=== PATIENT | female | born 1990 | race Caucasian/White ===

== ENCOUNTER 2018-05-04 09:40 | Outpatient (CLI) | payer OTHER, SELFPAY ==
[2018-05-04 10:11] LABS: HCT 29.6 % (36.0-46.0); HGB 10.3 g/dL (12.0-15.5); Mean Corp. HGB Concentration 34.8 g/dL (32.0-36.0); Mean Corpuscular Hemoglobin 32.9 pg (27.0-33.0); Mean Corpuscular Volume 94.6 fL (80-95); Mean Platelet Volume 9.5 fL (8.0-11.0); Platelet Count 213 x1000/uL (130-400); RBC 3.13 m/cumm (4.00-5.20); RBC Distribution Width 12.4 % (11.7-14.6); White Blood Cell Count 10.14 k/cumm (4.4-10.8)
[2018-05-04 10:25] LABS: Glucose,1 Hr (Glucola) 112 mg/dL (80-140)
== END 2018-05-04 10:00 ==
PROVIDERS: Advanced Practice Midwife; PCP Nurse Practitioner; Visit Provider Advanced Practice Midwife
DX: Z34.92 Encounter for supervision of normal pregnancy, unspecified, second trimester (principal)
CPT/HCPCS: 36415; 82950; 85027

== ENCOUNTER 2018-06-30 15:42 | Outpatient (REF) | payer OTHER, SELFPAY | END 2018-06-30 16:02 | LOC: LBN 15:42 | PROVIDERS: PCP Nurse Practitioner; Visit Provider Nurse Practitioner | DX: Z34.93 Encounter for supervision of normal pregnancy, unspecified, third trimester (principal); Z36.85 Encounter for antenatal screening for Streptococcus B | CPT/HCPCS: 87081 ==

== ENCOUNTER 2018-08-02 16:31 | Inpatient (IN) | payer OTHER, SELFPAY ==
[2018-08-02] MEDS: Normal Saline Flush 10 ML SYR IVP ×2 (18:56→19:16)
[2018-08-02] MEDS: Lactated Ringers 1,000 ML 125 ML IV (18:57)
[2018-08-02 20:16] LABS: HCT 33.8 % (36.0-46.0); HGB 11.7 g/dL (12.0-15.5); Mean Corp. HGB Concentration 34.6 g/dL (32.0-36.0); Mean Corpuscular Hemoglobin 30.5 pg (27.0-33.0); Mean Corpuscular Volume 88.3 fL (80-95); Mean Platelet Volume 9.8 fL (8.0-11.0); Platelet Count 210 x1000/uL (130-400); RBC 3.83 m/cumm (4.00-5.20); RBC Distribution Width 14.4 % (11.7-14.6); White Blood Cell Count 18.36 k/cumm (4.4-10.8)
[2018-08-02] MEDS: Normal Saline 50 ML 100 ML (23:50)
[2018-08-02] MEDS: Normal Saline Flush 10 ML SYR (23:50)
[2018-08-03] MEDS: Normal Saline 100 ML 150 ML (00:01)
[2018-08-03] MEDS: Lactated Ringers 200 ML 400 ML IV (01:55)
[2018-08-03] MEDS: Lactated Ringers 1,000 ML 125 ML IV (11:35)
[2018-08-03] MEDS: Oxytocin 10 UNITS/ML VIAL 20 UNITS IV (13:15)
[2018-08-03] MEDS: Ibuprofen 600 MG TAB PO ×2 (14:38→20:27)
[2018-08-03] MEDS: Acetaminophen 325 MG TAB 650 MG PO ×2 (14:38→19:05)
[2018-08-03] MEDS: Hamamelis Leaf/Glycerin 100 EACH BOX PR (14:38)
[2018-08-03] MEDS: Lidocaine 2% Pres-Free 5 ML VIAL (16:08)
[2018-08-03] MEDS: Docusate Sodium 100 MG CAP PO (20:27)
[2018-08-04] MEDS: Ibuprofen 600 MG TAB PO (06:22)
[2018-08-04] MEDS: Acetaminophen 325 MG TAB 650 MG PO (06:22)
[2018-08-04 16:54] LABS: HCT 29.9 % (36.0-46.0); HGB 9.8 g/dL (12.0-15.5); Mean Corp. HGB Concentration 32.8 g/dL (32.0-36.0); Mean Corpuscular Hemoglobin 30.2 pg (27.0-33.0); Mean Corpuscular Volume 92.3 fL (80-95); Mean Platelet Volume 10.1 fL (8.0-11.0); Platelet Count 248 x1000/uL (130-400); RBC 3.24 m/cumm (4.00-5.20); RBC Distribution Width 14.9 % (11.7-14.6); White Blood Cell Count 16.29 k/cumm (4.4-10.8)
== END 2018-08-04 17:15 | disposition home or self-care (01) | DRG 806 ==
PROVIDERS: Admitting Provider Advanced Practice Midwife; PCP Nurse Practitioner; Visit Provider Advanced Practice Midwife
DX: O48.0 Post-term pregnancy (principal); O87.2 Hemorrhoids in the puerperium; Z37.0 Single live birth; Z3A.40 40 weeks gestation of pregnancy; O77.0 Labor and delivery complicated by meconium in amniotic fluid; O70.0 First degree perineal laceration during delivery; O69.82X0 Labor and delivery complicated by other cord entanglement, without compression, not applicable or unspecified; Z30.430 Encounter for insertion of intrauterine contraceptive device; O99.824 Streptococcus B carrier state complicating childbirth
CPT/HCPCS: 36410; 36415; 85027; 86850; 86900; 86901; J2540; J7302

== ENCOUNTER 2018-08-05 15:08 | Outpatient (CLI) | payer OTHER, SELFPAY | END 2018-08-05 15:28 | PROVIDERS: PCP Nurse Practitioner; Visit Provider Advanced Practice Midwife | DX: Z37.0 Single live birth (principal) | CPT/HCPCS: E0602 ==

== ENCOUNTER 2019-04-22 14:37 | Outpatient (CLI) | payer OTHER, SELFPAY ==
[2019-04-22 15:09] LABS: HCT 40.3 % (36.0-46.0); HGB 13.7 g/dL (12.0-15.5); Mean Corpuscular Hemoglobin 31.4 pg (27.0-33.0); Mean Corpuscular Volume 92.4 fL (80-95); Platelet Count 322 x1000/uL (130-400); RBC 4.36 m/cumm (4.00-5.20); RBC Distribution Width 12.2 % (11.7-14.6); White Blood Cell Count 6.57 k/cumm (4.4-10.8)
[2019-04-22 15:41] LABS: Total Iron Binding Capacity 291 ug/dL (250-450)
[2019-04-22 16:09] LABS: ALT 23 U/L (14-59); AST 16 U/L (15-37); Albumin 3.9 g/dL (3.4-5.0); Alkaline Phosphatase 110 U/L (46-116); Anion Gap 6.1 mmol/L (3-11); BUN 16 mg/dL (7-18); Bilirubin, Total 0.4 mg/dL (0.2-1.0); CO2 28.9 mmol/L (21.0-32.0); CREATININE 0.72 mg/dL (0.55-1.02); Calcium 9.1 mg/dL (8.5-10.1); Chloride 104 mmol/L (98-107); Ferritin 44 ng/mL (8-388); Glucose 89 mg/dL (70-100); Potassium 4.1 mmol/L (3.5-5.1); Sodium 139 mmol/L (136-145); TSH (W/Ref FT4) 1.72 uIU/mL (0.36-3.74); Vitamin B12 448 pg/mL (193-986)
[2019-04-22 16:10] LABS: Folate > 20.0 ng/mL (8.6-20.0)
[2019-04-23 13:39] LABS: Lyme Ab w Rflx to Lyme Confirm Negative
== END 2019-04-22 14:57 ==
PROVIDERS: PCP Nurse Practitioner; Visit Provider Nurse Practitioner
DX: I10 Essential (primary) hypertension (principal); R53.83 Other fatigue
CPT/HCPCS: 36415; 80053; 85027; 82607; 82728; 82746; 83550; 84443; 86618

== ENCOUNTER 2019-08-04 09:30 | Outpatient (REF) | payer OTHER, SELFPAY | END 2019-08-04 09:50 | LOC: LBN 09:30 | PROVIDERS: PCP Nurse Practitioner; Visit Provider Nurse Practitioner Gerontology | DX: R50.9 Fever, unspecified (principal) | CPT/HCPCS: 87449 ==

== ENCOUNTER 2020-02-25 08:42 | Outpatient (CLI) | payer OTHER, SELFPAY ==
[2020-03-03 13:08] LABS: SARS-CoV-2 RNA Undetected (Undetected)
== END 2020-02-25 09:02 ==
PROVIDERS: PCP Nurse Practitioner; Visit Provider Nurse Practitioner
DX: Z11.59 Encounter for screening for other viral diseases (principal)
CPT/HCPCS: U0003

== ENCOUNTER 2020-07-17 07:59 | Outpatient (REF) | payer OTHER, SELFPAY ==
[2020-07-17 19:50] LABS: COVID-19 RT-PCR UVMMC Result Negative (Negative)
== END 2020-07-17 08:19 ==
LOC: LBO 07:59
PROVIDERS: Family Medicine; PCP Nurse Practitioner; Visit Provider Family Medicine
DX: Z11.59 Encounter for screening for other viral diseases (principal)
CPT/HCPCS: U0003

== ENCOUNTER 2020-11-30 17:09 | Outpatient (REF) | payer OTHER, SELFPAY ==
--- NOTE | 2020-11-30 15:40 | PAPFT_PTH ---
PATIENT: Cynthia Israel LOC: [place] U#:[id number] AGE/SX: 30/F ROOM: RE11/30/[address]: ALIE Haney : 1990 BED: DIS: 11/30/2020 SPEC #: [id number] RECD: 11/30/20 17:56 STATUS: CHRISTI REQ #: [id number] XAVIER: 11/30/20 15:[address]: Lauren Sarmiento DEPT: [facility] Cytology RECD BY: Justine Grimaldo ENTERED: 11/30/20 17:57 SP TYPE: PAPFT OTHR DR: Marielos Iniguez APRN Tissues: 1 - CX/ENDOCX FOR PAP SMEARS Procedures: PAP THIN PREP/UVM Screening HPV DNA PROBE Comments: [id number]
== END 2020-11-30 17:10 | disposition home or self-care (01) ==
LOC: LBN 17:09
PROVIDERS: PCP Nurse Practitioner; Visit Provider Nurse Practitioner Family
DX: Z12.4 Encounter for screening for malignant neoplasm of cervix (principal); Z11.51 Encounter for screening for human papillomavirus (HPV)
CPT/HCPCS: 88142; 87624

== ENCOUNTER 2021-05-13 09:17 | Emergency (ER) | payer OTHER, SELFPAY ==
[2021-05-13 09:21] VITALS: BP 107/70; PULSE 66; RESP 14; TEMP 36.7; O2SAT 98
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
[2021-05-13 10:26] LABS: Abs Immature Grans 0.02 10^3/uL (0.0-0.06); Absolute Basophil Count 0.03 10^3/uL (0.0-0.2); Absolute Eosinophil Count 0.09 10^3/uL (0.0-0.7); Absolute Lymphocyte Count 1.21 10^3/uL (1.2-3.4); Absolute Monocyte Count 0.39 10^3/uL (0.1-0.8); Absolute Neutrophil Count 3.54 10^3/uL (1.2-6.7); Basophils % 0.6; Eosinophils % 1.7; HCT 32.4 % (36.0-46.0); HGB 10.8 g/dL (11.2-15.7); Immature Grans % 0.4; Lymphocytes % 22.9; MCHC 33.3 % (32.0-36.0); MCV 93.1 fL (80-95); MPV 10.6 fL (8.0-11.0); Monocytes % 7.4; Nucleated RBC 0 %; Platelet Count 257 10^3/uL (130-400); RBC 3.48 10^6/uL (3.93-5.22); RDW 12.4 % (11.7-14.6); RDW-SD 41.7 fL; WBC 5.28 10^3/uL (4.4-10.8)
[2021-05-13] MEDS: Prochlorperazine 10 MG/2 ML VIAL IVP (10:36)
[2021-05-13] MEDS: Ketorolac 30 MG/ML VIAL IVP (10:37)
[2021-05-13] MEDS: diphenhydrAMINE 50 MG/ML VIAL 25 MG IVP (10:37)
[2021-05-13] MEDS: Normal Saline Flush 10 ML SYR IVP ×3 (10:38→12:01)
[2021-05-13 10:39] LABS: ALT 19 U/L (14-59); AST 17 U/L (15-37); Albumin 3.3 g/dL (3.4-5.0); Alkaline Phosphatase 74 U/L (46-116); Anion Gap 3.9 mmol/L (3-11); BUN 6 mg/dL (7-18); Bilirubin, Total 0.4 mg/dL (0.2-1.0); CO2 30.1 mmol/L (21.0-32.0); CREATININE 0.8 mg/dL (0.55-1.02); Calcium 8.5 mg/dL (8.5-10.1); Chloride 106 mmol/L (98-107); Glucose 92 mg/dL (74-106); Potassium 3.8 mmol/L (3.5-5.1); Sodium 140 mmol/L (136-145); Total Protein 6.6 g/dL (6.4-8.2)
[2021-05-13] MEDS: Omnipaque 350 MG/ML 100 ML BTL IJ (11:16)
--- NOTE | 2021-05-13 11:25 | DI.CT_ITS ---
Exam(s) CT HEAD W EXAM: CT HEAD W CLINICAL HISTORY: CTV, AQUINO intermittent 2 months, oral contraceptive. TECHNIQUE: Imaging Protocol: Both noninfused and contrast infused CT scans of the brain were perform ed. IV Contrast Dose =100 cc Axial computed tomography images with coronal and sagittal reformatted images were created and review ed COMPARISON: No exams were available for comparison FINDINGS: There are no skull fractures. Mild mucosal thickening noted in posterior aspect of both maxillary s inuses. Other paranasal sinuses are clear as are the mastoid air cells. There is no evidence of obvious intracranial hemorrhage, realizing that this study was performed only with IV contrast (as per request).There are no ring enhancing lesions in the brain. No abnormal men ingeal enhancement. There are no ring enhancing intra-axial lesions in the brain and there is no abnormal meningeal enhan cement, focal or diffuse. No evidence of vascular malformation nor obvious aneurysm. There is no evidence of venous sinus thrombosis. Asymmetry in the transverse sinuses is noted, as is often present. There is a peripherally hyperdense cyst in the pineal gland which measures 11 millimeters AP x 9 mill imeters craniocaudal by 10 millimeters wide, peripherally calcified ventricles are not enlarged. No prominent mass effect upon the tectumof the mesencephalon. Orbits reveal no obvious abnormality. IMPRESSION: No evidence of obvious venous dural sinus thrombosis, as per request. There is an 11 x 9 x 10 millimeter peripherally calcified lesion in the pineal. No associated hydroc ephalus. If clinically indicated follow-up MRI can be performed.. RADIATION DOSE DELIVERED: 859.3mGy.cm Total DLP DATA REPOSITORY: All CT scans at this facility are submitted to the National Radiology Data Registry (NRDR) Dose Index Registry (DIR) with the [employer] ([employer]). RADIATION OPTIMIZATION: All CT scans at this facility use at least one of these dose optimization te chniques: automated exposure control; mA and/or kV adjustment per patient size (includes targeted exa ms where dose is matched to clinical indication); or iterative reconstruction.
[2021-05-13] MEDS: Lactated Ringers 1,000 ML 1000 ML IV (12:00)
--- NOTE | 2021-05-13 12:38 | DI.VRAD_ITS ---
PROCEDURE INFORMATION: Exam: CT Head With Contrast Exam date and time: 05/13/2021 10:17 AM Age: 31 years old Clinical indication: Patient HX: CT venogram was performed. Headache x2 months, headache originating at occipital lobe, radiating around right ear. Worsening pain. TECHNIQUE: Imaging protocol: Computed tomography of the head with intravenous contrast. 3D rendering (Not supervised by radiologist): MIP and/or 3D reconstructed images were created by the technologist. Radiation optimization: All CT scans at this facility use at least one of these dose optimization techniques: automated exposure control; mA and/or kV adjustment per patient size (includes targeted exams where dose is matched to clinical indication); or iterative reconstruction. Contrast material: OMNIPAQUE 350; Contrast volume: 100 ml; Contrast route: INTRAVENOUS (IV); COMPARISON: No relevant prior studies available. FINDINGS: Brain: Non-enhancing peripherally calcified hypoattenuating 13 x 9 x 7 lesion in the pineal region. This likely represents a pineal cyst. There is no significant mass effect upon the tectum. No midline shift. There is no intracranial hemorrhage. There is normal guido-white matter differentiation without evidence of acute large vascular territorial infarct. There is no cerebral edema. There are no extra-axial fluid collections. The posterior fossa structures are unremarkable. Cerebral ventricles: The ventricles are normal in position. No hydrocephalus. Bones/joints: Unremarkable. No acute fracture. Paranasal sinuses: Visualized sinuses are unremarkable. No fluid levels. Mastoid air cells: Visualized mastoid air cells are well aerated. Vasculature: The dural sinuses, including the superior sagittal, straight, transverse, and sigmoid sinuses, are patent without evidence for thrombosis. Soft tissues: Unremarkable. IMPRESSION: Non-enhancing peripherally calcified hypoattenuating 13 x 9 x 7 lesion in the pineal region. This likely represents a pineal cyst. As this measures more than 1 cm, it is possible to be the cause of headache. Interval follow-up MRI of the brain could be performed to confirm stability. Dictated and Authenticated by: Zahira Hanson MD. Ordering:KAYLA Burdick MD
[2021-05-13 13:51] VITALS: BP 107/68; PULSE 68; RESP 14; TEMP 36.9; O2SAT 96
--- NOTE | 2021-05-13 18:07 | NUR.NOTE ---
referral to cm and neuro
== END 2021-05-13 14:01 | disposition home or self-care (01) ==
PROVIDERS: Emergency Provider Student in an Organized Health Care Education/Training Program; PCP Nurse Practitioner
DX: E34.8 Other specified endocrine disorders (principal); R51.9 Headache, unspecified; Z86.16 Personal history of COVID-19
CPT/HCPCS: 36415; 80053; 81025; 96361; 96374; 96375; 99285; 70460; 85025; 99284; J0780; J1200; J1885; J3490

== ENCOUNTER 2021-05-21 08:09 | Outpatient (CLI) | payer OTHER, SELFPAY ==
--- NOTE | 2021-05-21 08:00 | DI.MRI_ITS ---
Exam(s) MR BRAIN WO/W EXAM: MR BRAIN WO/W CLINICAL HISTORY: ?pineal cyst seen on CT E34.8 ENDOCRINE DISORDER. TECHNIQUE: Multiplanar multisequence MRI of the brain was performed. CONTRAST MATERIAL: IV Contrast: ML of Dotarem contrast administered. COMPARISON: CT CT HEAD W from 05/13/2021 FINDINGS: VENTRICLES AND EXTRA AXIAL SPACES: Normal in size and morphology for the patient's age. HEMORRHAGE: None. CEREBRAL PARENCHYMA: No focus of restricted diffusion to suggest acute infarct. No space-occupying le tremayne identified. MIDLINE SHIFT: None. BRAINSTEM/CEREBELLUM: Normal. Pituitary: Normal. ENHANCEMENT: No suspicious enhancement identified. VISUALIZED PARANASAL SINUSES/MASTOIDS: Clear. OTHER FINDINGS: 11 x 9 x 10 millimeter pineal cyst without visible mass effect. No calcifications ar e visible by MRI. No evidence of hemorrhage. IMPRESSION: Eleven millimeter pineal cyst without mass effect.. DATA REPOSITORY:
[2021-05-21] MEDS: Gadoterate meglumine 20 ML VIAL 10 ML IVP (14:32)
[2021-05-21] MEDS: Normal Saline Flush 10 ML SYR IVP (14:33)
== END 2021-05-21 08:29 ==
PROVIDERS: PCP Nurse Practitioner; Visit Provider Psychiatry & Neurology Neurology
DX: E34.8 Other specified endocrine disorders (principal); G93.0 Cerebral cysts
CPT/HCPCS: 70553

== ENCOUNTER 2022-10-08 02:07 | Outpatient (CLI) | payer OTHER, SELFPAY ==
[2022-10-08 07:49] LABS: HCT 34.9 % (36.0-46.0); HGB 11.4 g/dL (11.2-15.7); MCH 31.4 pg (27.0-33.0); MCHC 32.7 % (32.0-36.0); MCV 96 fL (80-95); MPV 10.2 fL (8.0-11.0); Platelet Count 272 10^3/uL (130-400); RBC 3.63 10^6/uL (3.93-5.22); RDW 12.1 % (11.7-14.6); RDW-SD 42.9 fL; WBC 4.23 10^3/uL (4.4-10.8)
[2022-10-08 09:17] LABS: Anion Gap 7.8 mmol/L (3-11); BUN 14 mg/dL (7-18); CO2 27.2 mmol/L (21.0-32.0); CREATININE 0.8 mg/dL (0.55-1.02); Calcium 9.1 mg/dL (8.5-10.1); Calculated LDL 106 mg/dL (<100); Chloride 106 mmol/L (98-107); Cholesterol 192 mg/dL (<200); Estimated GFR 99.71 (mL/min/1.73m2); Ferritin 11 ng/mL (8-252); Glucose 95 mg/dL (74-106); HDL Cholesterol 76 mg/dL (40-60); Potassium 4.3 mmol/L (3.5-5.1); Sodium 141 mmol/L (136-145); Triglyceride 50 mg/dL (<150)
== END 2022-10-08 02:08 | disposition home or self-care (01) ==
PROVIDERS: PCP Nurse Practitioner; Visit Provider Nurse Practitioner
DX: Z13.220 Encounter for screening for lipoid disorders (principal); D64.9 Anemia, unspecified; R51.9 Headache, unspecified
CPT/HCPCS: 36415; 80048; 80061; 85027; 82728

== ENCOUNTER 2023-02-11 06:40 | Emergency (ER) | payer OTHER, SELFPAY ==
[2023-02-11 06:44] VITALS: BP 100/81; PULSE 63; RESP 18; TEMP 36.6; O2SAT 98
--- NOTE | 2023-02-11 06:45 | DI.RAD_ITS ---
Exam(s) XR FOOT RT COMPLETE EXAM: XR FOOT RT COMPLETE CLINICAL HISTORY: right foot pain. TECHNIQUE: 2D digital imaging was performed. Three views. COMPARISON: No exams were available for comparison FINDINGS: BONES: No acute fracture is present. No bony destructive lesion is seen. JOINTS: No dislocation present. SOFT TISSUE: Normal. IMPRESSION: Unremarkable radiographs of the right foot. DATA REPOSITORY: RADIATION DOSE DELIVERED:
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
[2023-02-11] MEDS: Acetaminophen 500 MG TAB 1000 MG PO (06:53)
--- NOTE | 2023-02-11 09:31 | DI.VRAD_ITS ---
PROCEDURE INFORMATION: Exam: XR Right Foot Exam date and time: 02/11/2023 7:12 AM Age: 33 years old Clinical indication: Right; Patient HX: Pain, per PT: Rolled foot stepping off stair TECHNIQUE: Imaging protocol: Radiologic exam of the right foot. Views: 3 or more views. COMPARISON: No relevant prior studies available. FINDINGS: Bones/joints: Normal. Soft tissues: Normal. IMPRESSION: No acute findings. Dictated and Authenticated by: Alin Alexander MD. Ordering:ELLEN Bullock MD
== END 2023-02-11 07:42 | disposition home or self-care (01) ==
PROVIDERS: Emergency Provider Student in an Organized Health Care Education/Training Program; PCP Nurse Practitioner
DX: S93.401A Sprain of unspecified ligament of right ankle, initial encounter (principal); W01.0XXA Fall on same level from slipping, tripping and stumbling without subsequent striking against object, initial encounter
CPT/HCPCS: 29515; 99283; 73630

== ENCOUNTER 2023-04-16 17:14 | Emergency (ER) | payer OTHER, SELFPAY ==
[2023-04-16 17:17] VITALS: BP 113/81; PULSE 70; RESP 14; O2SAT 98
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
[2023-04-16 17:56] VITALS: TEMP 36.6
== END 2023-04-16 18:35 | disposition home or self-care (01) ==
LOC: ER 18:01
PROVIDERS: Emergency Provider Emergency Medicine; PCP Nurse Practitioner
DX: S61.216A Laceration without foreign body of right little finger without damage to nail, initial encounter (principal); W27.4XXA Contact with kitchen utensil, initial encounter; Y93.G1 Activity, food preparation and clean up
CPT/HCPCS: 12001

== ENCOUNTER 2025-06-09 10:56 | Outpatient (CLI) | payer OTHER, SELFPAY ==
--- NOTE | 2025-06-09 10:45 | DI.RAD_ITS ---
Exam(s) XR KNEE RT 3V AP,LAT,JAN EXAM: XR KNEE RT 3V AP,LAT,JAN CLINICAL HISTORY: right knee pain, M25.569. TECHNIQUE: 2D digital imaging was performed. Three views. COMPARISON: No exams were available for comparison FINDINGS: BONES: No acute fracture is present. No bony destructive lesion is seen. JOINTS: The knee is normally aligned. No joint effusion is seen. The joint spaces are maintained. No significant degenerative changes. SOFT TISSUE: Normal. IMPRESSION: Unremarkable radiographs of the right knee. DATA REPOSITORY: RADIATION DOSE DELIVERED:
== END 2025-06-09 11:16 ==
LOC: DI 10:57
PROVIDERS: PCP Nurse Practitioner; Visit Provider Emergency Medicine
DX: M25.561 Pain in right knee (principal)
CPT/HCPCS: 73562